=== PATIENT | female | born 1995 | race Caucasian/White ===

== ENCOUNTER 2016-08-12 14:33 | Emergency (ER) | payer OTHER ==
--- NOTE | 2016-08-12 15:28 | C.PDOC ---
History Of Present Illness 20 y/o female presents to the ED with complaints of nasal congestion, sore throat, bilateral ear clog sensation, nonproductive cough, fever and malaise for the past 5 days. Pt states her friend was sick with similar symptoms 1 week ago. Took Dayquil without relief. Denies chest pain, SOB or any other complaints. Time Seen by Provider: 08/12/16 14:56 Chief Complaint (Nursing): Flu-like Symptoms History Per: Patient History/Exam Limitations: no limitations Onset/Duration Of Symptoms: Days Current Symptoms Are (Timing): Still Present Sick Contacts (Context): Friend(s) Associated Symptoms: Fever, Sore Throat, Cough, Nasal Congestion. denies: Sputum Ear Symptoms: Bilateral: Ear Fullness Severity: Mild Recent travel outside of the [place]: No Past Medical History Reviewed: Historical Data, Nursing Documentation, Vital Signs Vital Signs: Last Vital Signs Temp 98.0 F 08/12/16 15:33 Pulse 84 08/12/16 15:33 Resp 16 08/12/16 15:33 BP 90/61 L 08/12/16 15:33 Pulse Ox 98 08/12/16 15:33 Family History: States: Unknown Family Hx - Social History Hx Alcohol Use: No Hx Substance Use: No - Immunization History Hx Tetanus Toxoid Vaccination: No Hx Influenza Vaccination: No Hx Pneumococcal Vaccination: No Review Of Systems Constitutional: Positive for: Fever, Malaise ENT: Positive for: Ear Pain, Nose Congestion, Throat Pain Cardiovascular: Negative for: Chest Pain Respiratory: Positive for: Cough. Negative for: Shortness of Breath Gastrointestinal: Negative for: Vomiting, Abdominal Pain, Diarrhea Genitourinary: Negative for: Dysuria Skin: Negative for: Rash Neurological: Negative for: Headache, Dizziness Physical Exam - Physical Exam Appears: Non-toxic, No Acute Distress Skin: Warm, Dry, No Rash Head: Atraumatic, Normacephalic Eye(s): bilateral: Normal Inspection, EOMI Ear(s): Bilateral: Normal Nose: Normal Oral Mucosa: Moist Lips: Normal Appearing Throat: Normal, No Erythema, No Exudate, No Drooling, No Mass Neck: Normal, Normal ROM, Supple Chest: Symmetrical Cardiovascular: Rhythm Regular, No Murmur Respiratory: Normal Breath Sounds, No Rales, No Rhonchi, No Wheezing Gastrointestinal/Abdominal: Normal Exam, Soft, No Tenderness Extremity: Bilateral: Atraumatic, Normal Color And Temperature, Normal ROM Neurological/Psych: Oriented x3, Normal Speech ED Course And Treatment O2 Sat by Pulse Oximetry: 97 (room air) Pulse Ox Interpretation: Normal Disposition Counseled Patient/Family Regarding: Diagnosis, Need For Followup, Rx Given - Disposition Referrals: Alvaro Davison MD [Non-Staff] - Disposition: HOME/ ROUTINE Disposition Time: 15:35 Condition: STABLE Additional Instructions: You have viral upper respiratory infection. Take Tylenol or Motrin alternating every 4-6 hours for Fever 100.4F or higher. Rest and drink plenty of fluids. May use cool mist humidifier or vaporizer in room. Try taking over the counter antihistamine (Claritin, Swathi, Zyrtec), Decongestant or Cough medicine ( Mucinex) as needed every 6-8 hours. Follow up with your primary medical doctor or clinic in 1 week for further evaluation. Prescriptions: Brompheniramine/Pseudoephed/Dm [Bromfed Dm Cough 118 ml] 5 ml PO Q8 PRN #4 oz PRN Reason: Cough And Congestion Instructions: Viral Syndrome (ED) Forms: Work Excuse - POA Present On Arrival: None - Clinical Impression Clinical Impression: Influenza-like illness - PA / TRANSFER PROFESSOR / Resident Statement MD/DO has reviewed & agrees with the documentation as recorded. - Scribe Statement The provider has reviewed the documentation as recorded by the Scribe Dedrick Ludwig All medical record entries made by the Scribe were at my direction and personally dictated by me. I have reviewed the chart and agree that the record accurately reflects my personal performance of the history, physical exam, medical decision making, and the department course for this patient. I have also personally directed, reviewed, and agree with the discharge instructions and disposition.
[2016-08-12 15:34] VITALS: BP 90/61; PULSE 84; RESP 16; TEMP 98
[2016-08-12 17:25] VITALS: O2SAT 97
== END 2016-08-12 15:39 | disposition home or self-care (01) ==
LOC: C.ER 14:33
DX: J11.1 Influenza due to unidentified influenza virus with other respiratory manifestations (principal)